=== PATIENT | male | born 1970 | race Caucasian/White ===

== ENCOUNTER 2019-06-19 14:06 | Inpatient (IN) | payer MEDICAID ==
[~2019-06-19] VITALS: Ht 180.3 cm; Wt 93.4 kg
[~2019-06-19 14:06] MED LIST: BACTRIM DS 8001 TA1 PO; CIPRO500 MG PO; KEFLEX500 MG PO; NKHM; PEN-VEE K500 MG PO; PERCOCET 325 MG1 TA1 PO; ROBAXIN500 MG PO; ULTRAM50 MG PO; VICODIN 5/500 505 MG PO
[2019-06-19 14:07] VITALS: BP 162/91
--- NOTE | 2019-06-19 15:24 | NUR ---
REPORT RECEIVED FROM DEAN CABALLERO, ASSUMED CARE OF PT, PT RESTING QUIETLY IN BED WITH NO COMPLAINTS, CALL BEARDEN IN REACH
[2019-06-19 15:25] LABS: BASO # 0.1 10*3/uL (0.0-0.1); BASO % 0.4 % (0.0-1.0); EOS # 0.2 10*3/uL (0.0-0.4); EOS % 1.9 % (1.0-4.0); HEMATOCRIT 44.1 % (42.0-52.0); HEMOGLOBIN 14.7 g/dl (14.0-18.0); LYMPH # 2.2 10*3/uL (1.3-4.4); LYMPH % 18.4 % (27.0-41.0); MEAN CELL VOLUME 85.3 fl (80.0-94.0); MEAN CORPUSCULAR HGB 28.4 pg (27.0-31.0); MEAN CORPUSCULAR HGB CONC 33.3 g/dl (33.0-37.0); MEAN PLATELET VOLUME 10.4 fl (9.6-12.3); MONO # 0.8 10*3/uL (0.1-1.0); MONO % 6.5 % (3.0-9.0); NEUT # 8.7 10*3/uL (2.3-7.9); PLATELET COUNT AUTOMATED 323 10*3/uL (130-400); RED BLOOD COUNT 5.17 10*6/uL (4.50-5.90); RED CELL DISTRI WIDTH 12.9 % (0-14.5); WHITE BLOOD COUNT 12.1 10*3/uL (4.8-10.8)
[2019-06-19 15:35] LABS: ACT PARTIAL THROMBO TIME 26.4 SECONDS (20.0-32.1); INTERNATIONAL NORM RATIO 0.9 (2.0-3.5)
[2019-06-19 15:45] LABS: ALBUMIN 3.4 gm/dl (3.1-4.5); ALKALINE PHOSPHATASE 92 U/L (45-117); BUN 12 mg/dl (7-24); CHLORIDE 104 mmol/L (98-107); LIPASE 125 U/L (73-393); POTASSIUM 3.5 mmol/L (3.5-5.1); SGOT/AST 5 IU/L (3-35); SGPT/ALT 11 U/L (12-78); SODIUM 135 mmol/L (136-145); TOTAL PROTEIN 7.5 gm/dL (6.4-8.2)
[2019-06-19 17:01] VITALS: BP 142/80
[2019-06-19 17:25] VITALS: BP 164/74; BP 167/74
--- NOTE | 2019-06-19 17:25 | NUR ---
A 48, admitted to , under the services of GUMARO Dia DO with a diagnosis of INFECTED OPEN WOUND OF FOOT. Chief complaint is WOUND CHECK. Patient arrived via ambulatory from ER. Monitor applied. Initial assessment completed. Vital signs taken and recorded. GUMARO DIA DO notified of admission to the unit. Orders received. See assessment for past medical history, medications and allergies. Patient and/or family oriented to unit. [facility] visitation policy reviewed. Clothing/patient valuable form completed. JULIÁN KELSEY
[2019-06-19 17:27] VITALS: BP 164/74
--- NOTE | 2019-06-19 17:43 | NUR ---
Podiatry was notified of consult
[2019-06-19] MEDS ORDERED: PRINIVIL10 MG PO (18:35)
[2019-06-19] MEDS ORDERED: GLUCOPHAGE1000 MG PO (18:39)
[2019-06-19] MEDS ORDERED: CELEXA10 MG PO (18:40)
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
[2019-06-19 20:00] VITALS: BP 140/66; BP 148/76
[2019-06-20] VITALS: BP 115/60
--- NOTE | 2019-06-20 01:09 | NUR ---
Patient resting quietly with no s/s of discomfort. Respirations easy and regular. Vital signs stable. No overt distress. Call light within reach. HISSOM,MANOJ
--- NOTE | 2019-06-20 01:24 | NUR ---
24 HR chart check completed.
--- NOTE | 2019-06-20 05:30 | NUR ---
WOUND CARE NURSE ROUNDED. APPLIED NEW DRESSING TO FOOT. TOLERATED WELL.
--- NOTE | 2019-06-20 05:47 | NUR ---
CODY RUSSELL [id number] Please refer to the physician's history and physical for past medical history, comorbid conditions, and allergies. Diagnosis: WOUND OF FOOT INFECTED OPEN WOUND John Score: 20,LOW OR NO RISK WOUND DESCRIPTIONS: Wound Number: 1 Location of the wound: medial aspect of right great toe Type of wound: unstageable Thickness: Full Size: 3.2cm x 3.5cm x 1.4cm Tunneling: none Undermining: none Sinus Tract: none Presence of Exudate: Purulent Amount: Light Color: Black, brown, yellow, red Odor: Foul Periwound Skin Appearance: Erythema Wound edges: approximated Pain (associated with wound): none at time of assessment pt stated ever since he has been diagnosis with diabetes 28 years ago he has not had feeling How does patient state this happened? pt stated this started about 1-2 years and was following with podiatry in [place] and he stated that they remove the tissue and it healed. Patient stated that he brought new boots in January and has since reopened and he stated he has been taking care of it himself. He stated he will follow up with podiatry upon discharge. Surface the patient is resting on: Isoflex SKIN PREVENTION RECOMMENDATION: 1. Pressure redistribution support surface as appropriate 2. Elevate heels 3. Remove boots/TEDS every shift and reapply 4. Head of bed 30 degrees as tolerated 5. Assess nutrition and hydration 6. Manage moisture 7. Avoid the use of containment devices while in bed 8. Use absorptive products on surfaces limit layers of linens on bed 9. Turn and reposition every 1-2 hours in bed and every 1 hour in chair as tolerated 10. Weight shifts every 15 minutes while up in chair 11. Offloading with pillows or device to keep heels elevated off bed 12. Monitor skin at least every shift 13. Inspect under medical devices twice a day WOUND TREATMENT RECOMMENDATIONS: Consult ID. Venous and arterial studies to BLE's due to non-healing wound. Podiatry is already on consult may need debridement if studies allow. Heel raiser pro boots to bilateral heels while in bed. Full thickness guidelines: Apply betadine soaked gauzed and cover with dsd daily and prn for soiling.
--- NOTE | 2019-06-20 06:51 | NUR ---
PATIENT RESTING IN BED. VOICES NO NEEDS/CONCERNS AT THIS TIME. RESPS EASY/NON LABORERED. CALL LIGHT WITHIN REACH
[2019-06-20 07:07] LABS: BASO # 0.1 10*3/uL (0.0-0.1); BASO % 0.8 % (0.0-1.0); EOS # 0.3 10*3/uL (0.0-0.4); EOS % 3.3 % (1.0-4.0); HEMATOCRIT 41.6 % (42.0-52.0); HEMOGLOBIN 13.9 g/dl (14.0-18.0); LYMPH # 2.3 10*3/uL (1.3-4.4); LYMPH % 25.3 % (27.0-41.0); MEAN CELL VOLUME 86.1 fl (80.0-94.0); MEAN CORPUSCULAR HGB 28.8 pg (27.0-31.0); MEAN CORPUSCULAR HGB CONC 33.4 g/dl (33.0-37.0); MEAN PLATELET VOLUME 10.6 fl (9.6-12.3); MONO # 0.5 10*3/uL (0.1-1.0); NEUT # 5.8 10*3/uL (2.3-7.9); NEUT % 64.4 % (47.0-73.0); PLATELET COUNT AUTOMATED 286 10*3/uL (130-400); RED BLOOD COUNT 4.83 10*6/uL (4.50-5.90); RED CELL DISTRI WIDTH 12.9 % (0-14.5); WHITE BLOOD COUNT 9.1 10*3/uL (4.8-10.8)
[2019-06-20 07:37] LABS: ALKALINE PHOSPHATASE 79 U/L (45-117); BUN 11 mg/dl (7-24); CHLORIDE 107 mmol/L (98-107); CHOLESTEROL 151 mg/dL (<200); CREATININE 0.93 mg/dL (0.70-1.30); FREE T4 1.27 ng/dl (0.76-1.46); HDL CHOLESTEROL 37 mg/dl (40-60); LDL CHOLESTEROL 84 mg/dL (9-159); PHOSPHOROUS 2.8 mg/dL (2.5-4.9); POTASSIUM 3.6 mmol/L (3.5-5.1); SGOT/AST 7 IU/L (3-35); SGPT/ALT 10 U/L (12-78); SODIUM 140 mmol/L (136-145); TOTAL PROTEIN 6.6 gm/dL (6.4-8.2); TRIGLYCERIDES 148 mg/dl (<150); VLDL CHOLESTEROL 30 mg/dL (6-40)
[2019-06-20 07:41] LABS: THYROID STIM HORMONE (HS) 0.672 uIU/ml (0.358-4.75)
--- NOTE | 2019-06-20 07:45 | NUR ---
Peggy CHEN notified of wound care recommendations.
[2019-06-20 08:00] VITALS: BP 134/64
--- NOTE | 2019-06-20 10:00 | NUR ---
RESTING IN CHAIR. TOLERATED ROUTINE MEDS WITH NO PROBLEM .CALL LIGHT IN REACH.
--- NOTE | 2019-06-20 10:00 | NUR ---
PT C/O RIGHT TOE PAIN, RATES PAIN 8 ON PAIN SCALE 0-10. MEDICATED WITH TYLENOL TWO TAB PO PER PRN ORDER, SEE EMAR. CALL LIGHT IN REACH. SEE SHIFT ASSESSMETN.
[2019-06-20 10:15] LABS: VITAMIN D, 25-HYDROXY 20.3 ng/mL (30-100)
--- NOTE | 2019-06-20 11:00 | NUR ---
STATES MEDICATION HELPED. CALL LIGHT IN REACH.
[2019-06-20 12:00] VITALS: BP 132/62
--- NOTE | 2019-06-20 12:00 | NUR ---
BSG-236, SEE EMAR. NO C/O AT THIS TIME. CALL LIGHT IN REACH .NO C/O A TTHIS TIME.
--- NOTE | 2019-06-20 13:30 | NUR ---
PT WAS SMOKING IN BATHROOM. ONOFRE BRITT WAS IN TO TALK WITH PT.
--- NOTE | 2019-06-20 14:31 | NUR ---
Valve Steamer in to talk to patient. Patient states lives at HOME with SISTER. There are NO steps in the home. Physician: [facility] Home health services: NO Patient's level of ADLs: INDEPENDENT Patient has working utilities: YES DME: NONE Follow-up physician's appointment after d/c: WANTS SET UP WITH [facility] ON DISCHARGE Does patient want to access PORTAL?: NO Discharge plan PT LIVES AT HOME WITH HIS SISTER AND IS INDEPENDENT IN HIS CARE. DENIES HE WILL HAVE NEEDS AT HOME. WILL CONTINUE TO FOLLOW. WILL HAVE A RIDE HOME PER PT.. SUSIE MADISON
--- NOTE | 2019-06-20 15:15 | NUR ---
CALLED DR. RUSSELL OFFICE FOR CONSULT THEY WILL NOTIFY HER.
--- NOTE | 2019-06-20 15:20 | NUR ---
CALLED DR. RUSSELL OFFICE THEY WILL NOTIFY HER OF CONSULT.
--- NOTE | 2019-06-20 18:00 | NUR ---
DRESSING APPLIED TO RIGHT GREAT TOE D/I. NO DRAINAGE NOTED. TOLERATED ROUTINE IV MEDICATION. CALL LIGHT IN REACH.
[2019-06-20 18:06] VITALS: BP 136/71
--- NOTE | 2019-06-20 18:41 | NUR ---
DR. WALTERS AWARE OF CONSULT. DR. VITALE WILL SEE PT IN AM.
[2019-06-20 20:00] VITALS: BP 146/72
[2019-06-21] VITALS (8 sets, daily range): BP systolic 106–159; BP diastolic 48–79
--- NOTE | 2019-06-21 08:50 | NUR ---
MAHAD PIKE IN TO SEE PATIENT.
--- NOTE | 2019-06-21 10:26 | NUR ---
'S OFFICE CALLED REGARDING MED LIST.
--- NOTE | 2019-06-21 10:31 | NUR ---
PATIENT TAKEN OFF THE FLOOR FOR SCHEDULED SURGERY.
--- NOTE | 2019-06-21 12:02 | NUR ---
Nutritional Support Services Note: PT is eating 100% of meals served. Was NPO for surgery this am. 1800cal diabetic diet as ordered. Infected open wound to right great toe. Pt refused supplement. Recommended continued good intake of meals. Declined a diet copy. Will follow as needed. Ht.5'11 Wt.206#. Felicity López Rdn Ld
--- NOTE | 2019-06-21 12:28 | NUR ---
PATIENT RETURNED TO ROOM FROM SCHEDULED SURGERY.
--- NOTE | 2019-06-21 12:40 | NUR ---
PT MEDICATED WITH IV MORPHINE PER PRN ORDER FOR C/O TOE PAIN TO RIGHT FOOT. PATIENT RETURNED FROM SCHEDULED PROCEDURE. WOUND VAC INTACT WITH [employer]. WILL MONITOR EFFECTIVENESS. CALL LIGHT WITHIN REACH.
--- NOTE | 2019-06-21 13:30 | NUR ---
MORPHINE RELIEVING PAIN PER PT. WILL CONTINUE TO MONITOR.
--- NOTE | 2019-06-21 15:31 | NUR ---
PT HAD SURGERY TODAY. STILL DENING NEEDS AT THIS TIME. WILL CONTINUE TO FOLLOW.
--- NOTE | 2019-06-21 20:30 | NUR ---
MEDICATED [facility] MORPHINE PER PRN ORDER FOR C/O PAIN.
[2019-06-22] VITALS: BP 157/77
[2019-06-22 08:00] VITALS: BP 132/66
--- NOTE | 2019-06-22 08:03 | NUR ---
Spoke with Dr. Patel he stated he will put the orders in for the wound vac.
--- NOTE | 2019-06-22 09:58 | NUR ---
Late entry - Spoke to Dr. Arana regarding outpatient wound vac and the patient being self pay. Dr. Ferrell would like patient to have IV antibiotics and a wound vac on discharge. Informed Dr. Arana [facility] wound vac form will need to be completed and an application can be completed for viraj care. Her verbalized an understanding. [facility] viraj care form given to CM. Patient will have to come to the hospital for his IV antibiotics. Awaiting completion of [facility] wound vac form.
--- NOTE | 2019-06-22 10:26 | NUR ---
BRISA FOR FOOT PAIN
--- NOTE | 2019-06-22 11:00 | NUR ---
BRISA EFFECTIVE, PT IN RECLINER, REMINDED TO ELEVATE FOOT
--- NOTE | 2019-06-22 11:29 | NUR ---
PSYCHIATRIC CARE FORM COMMPLETED FOR WOUND VAC AND FAXED TO REPLACED BY [facility].
[2019-06-22 12:00] VITALS: BP 142/75
[2019-06-22 13:05] LABS: ACID FAST SPEC PROCESSING Tissue Grinding (.)
--- NOTE | 2019-06-22 15:28 | NUR ---
WAITING FOR PODIATRY TO FILL OUT WOUND VAC FORM SO IT CAN BE SENT TO [facility].
[2019-06-22 16:00] VITALS: BP 138/76
[2019-06-22] MEDS ORDERED: BACTRIM 400-801 EACH PO (16:15)
--- NOTE | 2019-06-22 16:30 | NUR ---
ID IN TO SEE PT
--- NOTE | 2019-06-22 18:06 | NUR ---
CROCKETT FOR FOOT PAIN, PT REMAINS IN RECLINER, HAS BEEN OOB ALL DAY, AMBULATES TO BATHROOM WITH STEADY GAIT
[2019-06-22 20:00] VITALS: BP 156/76
--- NOTE | 2019-06-22 20:24 | NUR ---
PATIENT STATED THE NORCO WAS NOT EFFECTIVE FOR HIS PAIN, STATES HE IS HAVING SEVERE PAIN IN RT FOOT. MORPHINE GIVEN. WILL MONITOR AND REASSESS.
--- NOTE | 2019-06-22 22:00 | NUR ---
PATIENT RESTING, NO SIGNS OF DISTRESS. MORPHINE EFFECTIVE. WILL CONTINUE TO MONITOR.
[2019-06-23] VITALS: BP 125/73
--- NOTE | 2019-06-23 01:07 | NUR ---
24 HR chart check completed.
--- NOTE | 2019-06-23 07:52 | NUR ---
Notified Dr. Arana [facility] wound vac form needs ot be completed. He states he will completed when he arrives at the hospital. Awaiting completed [facility] wound vac form.
[2019-06-23 08:00] VITALS: BP 120/72
[2019-06-23 08:26] LABS: BASO # 0.1 10*3/uL (0.0-0.1); BASO % 1.1 % (0.0-1.0); EOS # 0.3 10*3/uL (0.0-0.4); EOS % 4.3 % (1.0-4.0); HEMATOCRIT 43.1 % (42.0-52.0); HEMOGLOBIN 14.4 g/dl (14.0-18.0); MEAN CELL VOLUME 86.7 fl (80.0-94.0); MEAN CORPUSCULAR HGB CONC 33.4 g/dl (33.0-37.0); MEAN PLATELET VOLUME 10.6 fl (9.6-12.3); MONO # 0.5 10*3/uL (0.1-1.0); MONO % 6.4 % (3.0-9.0); NEUT # 4.4 10*3/uL (2.3-7.9); NEUT % 60.9 % (47.0-73.0); PLATELET COUNT AUTOMATED 300 10*3/uL (130-400); RED BLOOD COUNT 4.97 10*6/uL (4.50-5.90); RED CELL DISTRI WIDTH 12.9 % (0-14.5); WHITE BLOOD COUNT 7.2 10*3/uL (4.8-10.8)
[2019-06-23 08:35] LABS: BUN 11 mg/dl (7-24); CHLORIDE 106 mmol/L (98-107); CREATININE 0.99 mg/dL (0.70-1.30); POTASSIUM 3.5 mmol/L (3.5-5.1); SODIUM 139 mmol/L (136-145)
[2019-06-23 12:00] VITALS: BP 130/70
--- NOTE | 2019-06-23 13:55 | NUR ---
RECEIVED WOUND VAC FORM BACK WITH DOCTORS SIGNITURE AND FAXED IT TO [facility] WITH [facility] FORM AGAIN AND CLINICALS.
[2019-06-23 16:00] VITALS: BP 138/70
--- NOTE | 2019-06-23 16:16 | NUR ---
[facility] CALLED BACK AND STATED A FEW LEGNTH OF TIME FOR VAC AND ORDER NEEDED MARKED IT WAS A DIABETIC WOUND. FIXED AND FAXED BACK TO THEM.
--- NOTE | 2019-06-23 16:46 | NUR ---
BRISA FOR FOOT PAIN
--- NOTE | 2019-06-23 19:17 | NUR ---
PO DOCULAX FOR C/O NO BM X 4 DAYS
[2019-06-23 20:00] VITALS: BP 148/82
--- NOTE | 2019-06-23 20:00 | NUR ---
PATIENT HAVING PAIN IN RT FOOT, RATES 10/10. MORPHINE GIVEN. WILL MONITOR AND REASSESS.
--- NOTE | 2019-06-23 21:30 | NUR ---
MORPHINE EFFECTIVE FOR PAIN.
--- NOTE | 2019-06-23 23:58 | NUR ---
24 HR chart check completed.
[2019-06-24] VITALS: BP 159/80
[2019-06-24 08:00] VITALS: BP 122/68; BP 140/83
--- NOTE | 2019-06-24 09:08 | NUR ---
PATIENT MEDICATED WITH PO NORCO AT THIS TIME FOR COMPLAINTS OF PAIN IN RLE 04/29. WILL MONITOR FOR EFFECTIVENESS.
--- NOTE | 2019-06-24 10:45 | NUR ---
PER PATIENT, PRN MED HAS BEEN EFFECTIVE.
[2019-06-24 12:00] VITALS: BP 139/68
[2019-06-24 16:00] VITALS: BP 127/65
[2019-06-24 20:00] VITALS: BP 131/66
--- NOTE | 2019-06-24 20:38 | NUR ---
AWAKE/ALERT FOR SHIFT ASSESSMENT. C/O RIGHT FOOT BURNING/PAIN RATED 8/10. MEDICATED WITH PRN MORPHINE ORDERD. PLEASANT/COOPERATIVE WITH CARE. WOUND VAC MAINTAINED. IV ABX INFUSING. CALL LIGHT IS IN REACH
[2019-06-25] VITALS: BP 123/61
[2019-06-25 08:00] VITALS: BP 126/94
--- NOTE | 2019-06-25 09:53 | NUR ---
PATIENT C/O PAIN IN RIGHT FOOT 04/29 AT THIS TIME; MEDICATED WITH NORCO PER ORDER. WILL MONITOR.
--- NOTE | 2019-06-25 11:00 | NUR ---
PER PATIENT, PAIN MEDICATION HAS BEEN EFFECTIVE.
[2019-06-25 12:00] VITALS: BP 138/63
[2019-06-25 16:00] VITALS: BP 143/80
--- NOTE | 2019-06-25 16:15 | NUR ---
PATIENT MEDICATED WITH NORCO AT THIS TIME FOR COMPLAINTS OF PAIN IN RIGHT FOOT 03/29. WILL MONITOR FOR EFFECTIVENESS.
--- NOTE | 2019-06-25 17:30 | NUR ---
PER PATIENT, PRN MEDICATION HAS BEEN EFFECTIVE. NO FURTHER COMPLAINTS AT THIS TIME.
[2019-06-25 20:00] VITALS: BP 132/63
--- NOTE | 2019-06-25 21:08 | NUR ---
PATIENT COMPLAINS OF 8/10 FOOT PAIN. MEDICATED PER ORDER. WILL CONTINUE TO [facility] FOR RELIEF. VOICES NO OTHER CONCERNS AT THIS TIME. RESTING IN BED. CALL LIGHT WITHIN REACH.
--- NOTE | 2019-06-25 22:00 | NUR ---
PAIN MEDICATION EFFECTIVE
--- NOTE | 2019-06-25 22:12 | NUR ---
PATIENT RESTING IN BED AT THIS TIME. VOICES NO CONCERNS. CALL LIGHT WITHIN REACH
[2019-06-26] VITALS: BP 111/55
--- NOTE | 2019-06-26 02:05 | NUR ---
PATIENTS IV NOT WORKING. ASKED PATIENT IF HE WOULD LIKE IT OUT NOW, AND WE WOULD START ANOTHER IN THE MORNING. PATIENT STATED HE WAS TIRED AND WANTED TO WAIT TO TAKE IT OUT/START ANOTHER UNTIL TOMORROW MORNING.
--- NOTE | 2019-06-26 02:31 | NUR ---
Patient sleeping. Respirations relaxed and easy. Siderails up . [place] on. CALL LIGHT WITHIN REACH HISSOM,MANOJ
--- NOTE | 2019-06-26 03:12 | NUR ---
24 HR chart check completed.
--- NOTE | 2019-06-26 06:24 | NUR ---
IV started right hand with #22 protective cath after 1 attempts. Site prepped with Chloroprep. Sterile dressing applied. Patient tolerated procedure well. MANOJ KAISER
--- NOTE | 2019-06-26 06:24 | NUR ---
Hep Lock discontinued. Site asymptomatic. Pressure applied. Sterile dressing applied. MANOJ KAISER
[2019-06-26 06:53] LABS: BASO # 0.1 10*3/uL (0.0-0.1); BASO % 1.2 % (0.0-1.0); EOS # 0.4 10*3/uL (0.0-0.4); HEMOGLOBIN 14.1 g/dl (14.0-18.0); LYMPH # 2.5 10*3/uL (1.3-4.4); LYMPH % 32.3 % (27.0-41.0); MEAN CELL VOLUME 87.2 fl (80.0-94.0); MEAN CORPUSCULAR HGB 28.6 pg (27.0-31.0); MEAN CORPUSCULAR HGB CONC 32.8 g/dl (33.0-37.0); MONO # 0.7 10*3/uL (0.1-1.0); MONO % 9.4 % (3.0-9.0); NEUT % 51.7 % (47.0-73.0); PLATELET COUNT AUTOMATED 288 10*3/uL (130-400); RED BLOOD COUNT 4.93 10*6/uL (4.50-5.90); RED CELL DISTRI WIDTH 12.8 % (0-14.5); WHITE BLOOD COUNT 7.8 10*3/uL (4.8-10.8)
[2019-06-26 06:58] LABS: ALKALINE PHOSPHATASE 64 U/L (45-117); BUN 12 mg/dl (7-24); CHLORIDE 105 mmol/L (98-107); CREATININE 1.17 mg/dL (0.70-1.30); POTASSIUM 3.8 mmol/L (3.5-5.1); SGOT/AST 13 IU/L (3-35); SGPT/ALT 20 U/L (12-78); SODIUM 138 mmol/L (136-145); TOTAL PROTEIN 6.6 gm/dL (6.4-8.2)
--- NOTE | 2019-06-26 07:00 | NUR ---
ARRIVED ON SHIFT, INTRODUCED TO PATIENT, BEDSIDE REPORT RECEIVED, PATIENT UP IN CHAIR, NO NEEDS VOICED AT THIS TIME.
--- NOTE | 2019-06-26 07:31 | NUR ---
Spoke with Dr. Arana regarding wound vac orders stated he will clarify when he gets here.
--- NOTE | 2019-06-26 07:56 | NUR ---
PATIENT C/O RIGHT FOOT, RATES PAIN 9/10 REPORTS IT IS A BURNING, SHOOTING PAIN FROM HEEL UP [place]MON[place], MEDICATED WITH NORCO ORDERED.
[2019-06-26 08:00] VITALS: BP 147/73
--- NOTE | 2019-06-26 08:01 | NUR ---
Shift chart check completed.
[2019-06-26 12:00] VITALS: BP 135/73
--- NOTE | 2019-06-26 12:23 | NUR ---
PATIENT C/O RIGHT FOOT 8/10 THROBBING, MEDICATED WITH NORCO ORDERED.
--- NOTE | 2019-06-26 13:38 | NUR ---
Asked Dr. Arana if he was going to put the home wound vac on and he states he would. Informed the wound vac would be here between 5:30 and 6 pm tonight. Peggy Garcia notified.
--- NOTE | 2019-06-26 13:43 | NUR ---
PER HARDY FORM [facility], WOUND VAC WILL BE HERE BETWEEN 5:[address] SAL WILL BE IN TO APPLY WOUND VAC BEFORE PT DISCHARGED. MAHAD GALLAGHER.
[2019-06-26] MEDS ORDERED: Lantus SC (13:50)
[2019-06-26] MEDS ORDERED: HYDROCODONE-AC1 EAC1 PO (13:50)
[2019-06-26] MEDS ORDERED: PRINIVIL10 MG PO (13:50)
[2019-06-26] MEDS ORDERED: GLUCOPHAGE1000 MG PO (13:50)
[2019-06-26 16:00] VITALS: BP 124/62
--- NOTE | 2019-06-26 19:00 | NUR ---
Discharge instructions reviewed with patient/family. Patient receptive and verbalizes understanding. Follow-up care arranged. Written instructions given to patient/family. WOUND CARE SUPPLIES SENT WITH PATIENT, IV REMOVED, LEFT VIA W/C. TANO GLASS
[2019-08-02 11:09] LABS: ACID FAST CULTURE Negative (.)
== END 2019-06-26 20:28 | disposition home or self-care (01) | DRG 629 ==
LOC: ED 14:06 → 5E 16:16 → EDHOLD 16:16 → 5E 16:57
PROVIDERS: Internal Medicine; Nurse Practitioner Family; Podiatrist; Registered Nurse; ADMIT Internal Medicine
PROC: 0QBQ0ZZ Excision of Right Toe Phalanx, Open Approach (ICD-10-PCS; principal; 2019-06-21)
DX: E11.621 Type 2 diabetes mellitus with foot ulcer (principal); E44.1 Mild protein-calorie malnutrition; L03.031 Cellulitis of right toe; F41.1 Generalized anxiety disorder; E11.65 Type 2 diabetes mellitus with hyperglycemia; R00.1 Bradycardia, unspecified; D50.0 Iron deficiency anemia secondary to blood loss (chronic); E55.9 Vitamin D deficiency, unspecified; L97.519 Non-pressure chronic ulcer of other part of right foot with unspecified severity; F12.90 Cannabis use, unspecified, uncomplicated; E11.42 Type 2 diabetes mellitus with diabetic polyneuropathy; I10 Essential (primary) hypertension; Z79.84 Long term (current) use of oral hypoglycemic drugs; Z82.49 Family history of ischemic heart disease and other diseases of the circulatory system; Z81.1 Family history of alcohol abuse and dependence; Z79.899 Other long term (current) drug therapy; Z87.891 Personal history of nicotine dependence; Z68.28 Body mass index [BMI] 28.0-28.9, adult

== ENCOUNTER → 2019-07-04 | Outpatient (CLI) | payer OTHER ==
[~2019-07-04] MED LIST changes: +BACTRIM 400-801 EACH PO; +CELEXA10 MG PO; +GLUCOPHAGE1000 MG PO; +HYDROCODONE-AC1 EAC1 PO; +Lantus SC; +PRINIVIL10 MG PO
== END | disposition home or self-care (01) ==
LOC: RESCLI 00:48
DX: E11.43 Type 2 diabetes mellitus with diabetic autonomic (poly)neuropathy (principal); I10 Essential (primary) hypertension; Z79.4 Long term (current) use of insulin; Z98.890 Other specified postprocedural states; Z88.8 Allergy status to other drugs, medicaments and biological substances

== ENCOUNTER → 2019-08-25 | Outpatient (CLI) | payer OTHER | END | disposition home or self-care (01) | LOC: RESCLI 01:37 | DX: Z23 Encounter for immunization (principal); E78.5 Hyperlipidemia, unspecified; E55.9 Vitamin D deficiency, unspecified; E11.43 Type 2 diabetes mellitus with diabetic autonomic (poly)neuropathy; I10 Essential (primary) hypertension; F41.1 Generalized anxiety disorder; F17.210 Nicotine dependence, cigarettes, uncomplicated; Z79.899 Other long term (current) drug therapy; Z79.84 Long term (current) use of oral hypoglycemic drugs; Z79.4 Long term (current) use of insulin ==

== ENCOUNTER → 2019-09-29 | Outpatient (CLI) | payer OTHER ==
[2019-09-29 09:25] LABS: BASO # 0.1 10*3/uL (0.0-0.1); BASO % 0.8 % (0.0-1.0); EOS # 0.3 10*3/uL (0.0-0.4); EOS % 3.1 % (1.0-4.0); HEMATOCRIT 46.8 % (42.0-52.0); HEMOGLOBIN 15.5 g/dl (14.0-18.0); LYMPH % 28.8 % (27.0-41.0); MEAN CELL VOLUME 87.2 fl (80.0-94.0); MEAN CORPUSCULAR HGB 28.9 pg (27.0-31.0); MEAN CORPUSCULAR HGB CONC 33.1 g/dl (33.0-37.0); MEAN PLATELET VOLUME 10.7 fl (9.6-12.3); MONO # 0.7 10*3/uL (0.1-1.0); MONO % 6.5 % (3.0-9.0); NEUT # 6.4 10*3/uL (2.3-7.9); NEUT % 60.4 % (47.0-73.0); PLATELET COUNT AUTOMATED 257 10*3/uL (130-400); RED BLOOD COUNT 5.37 10*6/uL (4.50-5.90); RED CELL DISTRI WIDTH 13.2 % (0-14.5); WHITE BLOOD COUNT 10.5 10*3/uL (4.8-10.8)
[2019-09-29 10:01] LABS: ALBUMIN 3.7 gm/dl (3.1-4.5); BUN 15 mg/dl (7-24); CHLORIDE 106 mmol/L (98-107); POTASSIUM 3.8 mmol/L (3.5-5.1); SODIUM 138 mmol/L (136-145)
[2019-09-29 10:06] LABS: ALKALINE PHOSPHATASE 85 U/L (45-117); CHOLESTEROL 122 mg/dL (<200); CREATININE 0.91 mg/dL (0.70-1.30); HDL CHOLESTEROL 41 mg/dl (40-60); LDL CHOLESTEROL 54 mg/dL (9-159); SGOT/AST 9 IU/L (3-35); SGPT/ALT 26 U/L (12-78); TOTAL PROTEIN 7.5 gm/dL (6.4-8.2); TRIGLYCERIDES 137 mg/dl (<150); VLDL CHOLESTEROL 27 mg/dL (6-40)
[2019-09-30 10:06] LABS: CREATININE,URINE 79.6 mg/dL (Not Estab.)
== END | disposition home or self-care (01) ==
LOC: RESCLI 01:35
PROVIDERS: Internal Medicine
DX: I10 Essential (primary) hypertension (principal); E55.9 Vitamin D deficiency, unspecified; E78.5 Hyperlipidemia, unspecified; E11.43 Type 2 diabetes mellitus with diabetic autonomic (poly)neuropathy; Z79.4 Long term (current) use of insulin; Z79.899 Other long term (current) drug therapy

== ENCOUNTER 2020-06-12 14:52 | Observation (INO) | payer OTHER ==
[~2020-06-12] VITALS: Ht 180.3 cm; Wt 103.4 kg
[2020-06-12 15:25] VITALS: BP 145/98
[2020-06-12 16:00] VITALS: BP 138/80
[2020-06-12 17:25] LABS: BASO # 0.1 10*3/uL (0.0-0.1); BASO % 0.5 % (0.0-1.0); EOS # 0.2 10*3/uL (0.0-0.4); EOS % 1.6 % (1.0-4.0); HEMATOCRIT 44.8 % (42.0-52.0); LYMPH # 3.3 10*3/uL (1.3-4.4); LYMPH % 35.1 % (27.0-41.0); MEAN CELL VOLUME 83.3 fl (80.0-94.0); MEAN CORPUSCULAR HGB CONC 32.4 g/dl (33.0-37.0); MEAN PLATELET VOLUME 10.6 fl (9.6-12.3); MONO # 0.7 10*3/uL (0.1-1.0); MONO % 6.9 % (3.0-9.0); NEUT # 5.3 10*3/uL (2.3-7.9); NEUT % 55.6 % (47.0-73.0); PLATELET COUNT AUTOMATED 254 10*3/uL (130-400); RED BLOOD COUNT 5.38 10*6/uL (4.50-5.90); RED CELL DISTRI WIDTH 13.9 % (0-14.5); WHITE BLOOD COUNT 9.5 10*3/uL (4.8-10.8)
[2020-06-12 17:25] LABS: BILIRUBIN NEGATIVE; BLOOD 1+ (NEGATIVE); CLARITY CLEAR (CLEAR); COLOR YELLOW (YELLOW); GLUCOSE NEGATIVE; KETONE NEGATIVE; LEUKO ESTERASE NEGATIVE (NEGATIVE); NITRITE NEGATIVE (NEGATIVE); SPECIFIC GRAVITY < 1.005 (1.001-1.030)
[2020-06-12 17:28] LABS: RBC 0-2 rbc/hpf (0-2)
[2020-06-12 17:29] LABS: BACTERIA TRACE; EPITHELIAL CELLS 0-2
[2020-06-12 17:37] LABS: ACT PARTIAL THROMBO TIME 26.7 SECONDS (20.0-32.1); INTERNATIONAL NORM RATIO 1.1 (2.0-3.5)
[2020-06-12 17:42] LABS: ALBUMIN 3.4 gm/dl (3.1-4.5); ALKALINE PHOSPHATASE 79 U/L (45-117); BUN 14 mg/dl (7-24); CHLORIDE 108 mmol/L (98-107); CREATININE 0.94 mg/dL (0.70-1.30); LIPASE 329 U/L (73-393); POTASSIUM 3.3 mmol/L (3.5-5.1); SGOT/AST 15 IU/L (3-35); SGPT/ALT 26 U/L (12-78); SODIUM 139 mmol/L (136-145); TOTAL PROTEIN 7.1 gm/dL (6.4-8.2)
[2020-06-12 17:43] LABS: TROPONIN I < 0.015 ng/ml (<0.045)
[2020-06-12] MEDS ORDERED: LIPITOR10 MG PO (17:57)
[2020-06-12 18:02] VITALS: BP 145/91
--- NOTE | 2020-06-12 20:01 | NUR ---
PT PROVIDED A BOX LUNCH,PT WATCHING T.V. WHILE AWAITING ADMISSION,CALL LIGHT WITHIN REACH.
--- NOTE | 2020-06-12 20:17 | NUR ---
HOSPITALIST AT BEDSIDE. DENIES NEEDS AT THIS TIME.
[2020-06-12 20:50] VITALS: BP 138/80
--- NOTE | 2020-06-12 20:50 | NUR ---
A 49, admitted to 4E, under the services of RAMIRO Raines DO with a diagnosis of NEW ONSET AFIB. Chief complaint is IRREGULAR HR. Patient arrived via stretcher from ER. Monitor applied. Initial assessment completed. Vital signs taken and recorded. RAMIRO RAINES DO notified of admission to the unit. Orders received. See assessment for past medical history, medications and allergies. Patient and/or family oriented to unit. [facility] 4TH FLOOR visitation policy reviewed. Clothing/patient valuable form completed. LORI TARIQ
[2020-06-12] MEDS ORDERED: LISINOPRIL20 MG PO (20:57)
--- NOTE | 2020-06-12 21:31 | NUR ---
NOTIFIED DR. RAMOS PATIENTS MED REC IS UP TO DATE
--- NOTE | 2020-06-12 22:16 | NUR ---
PATIENT REQUESTING NICOTINE PATCH. NOTIFIED DR. RAMOS. STATED SHE WOULD ORDER IT.
[2020-06-12] MEDS ORDERED: LANTUS SOL100 UNIT/1 SC (22:31)
--- NOTE | 2020-06-12 22:45 | NUR ---
NOTIFIED DR. NAVAS ANSWERING SERVICE OF NEW CONSULT.
--- NOTE | 2020-06-12 22:54 | NUR ---
NICOTINE PATCH PLACED ON LEFT SHOULDER.
[2020-06-13] VITALS: BP 142/91
--- NOTE | 2020-06-13 02:04 | NUR ---
PATIENT SLEEPING, NO SIGNS OF DISTRESS. RESPIRATIONS EASY, NON LABORED. BED IN LOWEST POSITION,CALL LIGHT WITHIN REACH. WILL CONTINUE TO MONITOR.
[2020-06-13 06:51] LABS: BASO % 0.5 % (0.0-1.0); EOS # 0.2 10*3/uL (0.0-0.4); EOS % 2.4 % (1.0-4.0); HEMATOCRIT 43.8 % (42.0-52.0); LYMPH # 2.6 10*3/uL (1.3-4.4); LYMPH % 30.1 % (27.0-41.0); MEAN CELL VOLUME 83.4 fl (80.0-94.0); MEAN CORPUSCULAR HGB 26.7 pg (27.0-31.0); MONO # 0.7 10*3/uL (0.1-1.0); MONO % 7.8 % (3.0-9.0); NEUT # 5.2 10*3/uL (2.3-7.9); NEUT % 59.1 % (47.0-73.0); PLATELET COUNT AUTOMATED 242 10*3/uL (130-400); RED BLOOD COUNT 5.25 10*6/uL (4.50-5.90); RED CELL DISTRI WIDTH 14.1 % (0-14.5); WHITE BLOOD COUNT 8.8 10*3/uL (4.8-10.8)
[2020-06-13 07:20] LABS: ALKALINE PHOSPHATASE 68 U/L (45-117); BUN 14 mg/dl (7-24); CHLORIDE 110 mmol/L (98-107); CHOLESTEROL 83 mg/dL (<200); CREATININE 0.86 mg/dL (0.70-1.30); HDL CHOLESTEROL 33 mg/dl (40-60); LDL CHOLESTEROL 32 mg/dL (9-159); POTASSIUM 3.5 mmol/L (3.5-5.1); SGOT/AST 14 IU/L (3-35); SGPT/ALT 24 U/L (12-78); SODIUM 141 mmol/L (136-145); TOTAL PROTEIN 6.2 gm/dL (6.4-8.2); TRIGLYCERIDES 88 mg/dl (<150); VLDL CHOLESTEROL 18 mg/dL (6-40)
[2020-06-13 07:26] LABS: THYROID STIM HORMONE (HS) 0.541 uIU/ml (0.358-4.75)
[2020-06-13 08:00] VITALS: BP 149/92
--- NOTE | 2020-06-13 08:42 | NUR ---
PT SITTING UP AT SIDE OF BED. TOLERATED ROUTINE MED WITH NO PROBLEM. NO C/O AT THIS TIME. CALL LIGHT IN REACH. SEE SHIFT ASSESSMENT.
--- NOTE | 2020-06-13 08:54 | NUR ---
CALLED DR. CAMILO MADE AWARE OF PT HAD 5 BEAT RUN VTACH ON MONITOR. AND OCCASIONAL PVC'S. NO NEW ORDER TAKEN.
--- NOTE | 2020-06-13 11:00 | NUR ---
Patent Attorney in to talk to patient. Patient states lives at HOME with SISTER. There are NO steps in the home. Physician: [facility] [place] health services: NONE Patient's level of ADLs: INDEPENDENT Patient has working utilities: YES DME: NONE Follow-up physician's appointment after d/c: WILL BE MADE BY HOSPITALIST NURSE DIRECTOR ON DISCHARGE Does patient want to access PORTAL?: NO Discharge plan PT LIVES AT HOME WITH HIS SISTER AND IS INDEPENDENT IN HIS CARE.. PT DECLINES HE WILL HAVE ANY NEEDS ON DISCHARGE. STATES HIS PLAN IS TO RETURN HOME ON DISCHARGE. WILL CONTINUE TO FOLLOW. STATES HE WILL HAVE A RIDE HOME. SUSIE MADISON
--- NOTE | 2020-06-13 11:40 | NUR ---
PT SITTING UP IN BED. BSG-193, SEE EMAR. NO C/O AT THIS TIME. CALL LIGHT IN REACH.
[2020-06-13 12:00] VITALS: BP 155/99
[2020-06-13 16:00] VITALS: BP 150/97
--- NOTE | 2020-06-13 16:10 | NUR ---
PT RESTING IN BED BSG-229, SEE EMAR. NO C/O AT THIS TIME. CALL LIGHT IN REACH. SEE SHIFT ASSESSMENT.
[2020-06-13 20:00] VITALS: BP 138/93
--- NOTE | 2020-06-13 20:00 | NUR ---
PATIENT RESTING IN BED. VOICES NO COMPLAINTS. REPSIRATIONS EASY, NON LABORED. VSS. REMINDER PATIENT HE IS TO BE NPO PAST MIDNIGHT. BED IN LOWEST POSITION,CALL LIGHT WITHIN REACH. WILL CONTINUE TO MONITOR.
[2020-06-14] VITALS: BP 146/94
--- NOTE | 2020-06-14 00:57 | NUR ---
PATIENT REQUESTING GABAPENTIN FOR C/O BLE PAIN. DESCRIBES IT SHOOTING PAINS UP AND DOWN HIS LEGS.TYLENOL NOT EFFECTIVE. NOTIFIED DR. RAMOS. ORDERS PLACED FOR NORCO INSTEAD. WILL CONTINUE TO MONITOR.
[2020-06-14 07:02] LABS: BASO # 0.1 10*3/uL (0.0-0.1); BASO % 0.6 % (0.0-1.0); EOS # 0.2 10*3/uL (0.0-0.4); EOS % 2.3 % (1.0-4.0); HEMATOCRIT 42.8 % (42.0-52.0); LYMPH # 2.1 10*3/uL (1.3-4.4); LYMPH % 24.6 % (27.0-41.0); MEAN CELL VOLUME 82.6 fl (80.0-94.0); MEAN CORPUSCULAR HGB 26.4 pg (27.0-31.0); MEAN PLATELET VOLUME 11.2 fl (9.6-12.3); MONO # 0.8 10*3/uL (0.1-1.0); MONO % 9.3 % (3.0-9.0); NEUT # 5.5 10*3/uL (2.3-7.9); PLATELET COUNT AUTOMATED 248 10*3/uL (130-400); RED BLOOD COUNT 5.18 10*6/uL (4.50-5.90); RED CELL DISTRI WIDTH 13.8 % (0-14.5); WHITE BLOOD COUNT 8.7 10*3/uL (4.8-10.8)
--- NOTE | 2020-06-14 07:30 | NUR ---
PT RESTING IN BED. VOICES NO CONCERNS AT THIS TIME. RESPS EASY AND NON LABORED. NO S/S OF DISTRESS NTOED. VSS. WHITE BOARD UPDATED. POC DISCUSSED W PT. A/O X3. DENIES CHEST PAIN/PRESSURE/SOB/BORGES/NUMBNESS/DIZZINESS. TRACE BILAT EDEMA NOTED. AFIB IN THE 90-LOW 100'S. MORNING MEDICATIONS NOT GIVEN AT THIS TIME DUE TO NPO STATUS FOR STRESS TEST. WILL CONTINUE TO MONITOR. CALL LIGHT WITHIN REACH.
[2020-06-14 07:45] LABS: BUN 10 mg/dl (7-24); CHLORIDE 109 mmol/L (98-107); CREATININE 0.86 mg/dL (0.70-1.30); POTASSIUM 3.4 mmol/L (3.5-5.1); SODIUM 140 mmol/L (136-145)
--- NOTE | 2020-06-14 07:56 | NUR ---
PTS HEART RATE 130'S WHILE AMBULATING IN ROOM. RESPS EASY AND NON LABORED. NO S/S OF DISTRESS NOTED. VSS. NO CP/P/SOB
--- NOTE | 2020-06-14 10:30 | NUR ---
Discharge instructions reviewed with patient/family. Patient receptive and verbalizes understanding. Follow-up care arranged. Written instructions given to patient/family. MANOJ KAISER The Discharge Plan/Instructions have been completed. Hep Lock discontinued. Site asymptomatic. Pressure applied. Sterile dressing applied. MANOJ KAISER
--- NOTE | 2020-06-14 10:30 | NUR ---
PT TAKEN OFF FLOOR FOR STRESS TEST
--- NOTE | 2020-06-14 11:17 | NUR ---
Mr. Kaur was received into cardiology for Lexiscan nuclear GXT in stable condition. The procedure was explained and consent was signed. Resting BP 154/90 HR 110. AFIB RVR noted with ocasioanl PVC. Dr. Guallpa present for the test. Patient completed 10 second injection of 0.4mg Lexiscan followed by flush and at 40 second nuclear injection followed by flush. Test terminated at 1:00 due to end of protocol. Patient had complaints of odd chest discomfort. No EKG change noted. Recovery HR 142 BPO 148/84 chest discomfort gone. Mr. Kaur left the GXT room in stable condition. He had a small snack of 8oz coke and crackers. He will return to nuc med shortly to finish stress images. Then will return to nursing floor.
--- NOTE | 2020-06-14 11:42 | NUR ---
PT CONTINUES TO DENY NEEDS ON DISCHARGE. WILL CONTINUE TO FOLLOW.
[2020-06-14 12:00] VITALS: BP 147/95
--- NOTE | 2020-06-14 12:29 | NUR ---
PT BACK FROM STRESS TEST
[2020-06-14] MEDS ORDERED: METOPROLOL SUC100 M1 PO (15:47)
[2020-06-14] MEDS ORDERED: XARE20MG PO (15:47)
[2020-06-14 16:00] VITALS: BP 130/82
== END 2020-06-14 16:30 | disposition home or self-care (01) ==
LOC: ED 14:52 → 4E 19:02 → EDHOLD 19:02 → 4E 19:46
PROVIDERS: Internal Medicine; Physician Assistant; ADMIT Internal Medicine; ATTEND Internal Medicine
DX: I48.91 Unspecified atrial fibrillation (principal); E87.6 Hypokalemia; R00.0 Tachycardia, unspecified; E87.8 Other disorders of electrolyte and fluid balance, not elsewhere classified; E11.65 Type 2 diabetes mellitus with hyperglycemia; E78.5 Hyperlipidemia, unspecified; R31.9 Hematuria, unspecified; I10 Essential (primary) hypertension; D64.9 Anemia, unspecified; R79.89 Other specified abnormal findings of blood chemistry; F17.210 Nicotine dependence, cigarettes, uncomplicated

== ENCOUNTER → 2020-07-12 | Outpatient (CLI) | payer OTHER ==
[~2020-07-12] MED LIST changes: +LANTUS SOL100 UNIT/1 SC; +LIPITOR10 MG PO; +LISINOPRIL20 MG PO; +METOPROLOL SUC100 M1 PO; +XARE20MG PO
== END | disposition home or self-care (01) ==
LOC: COVID19 00:16
PROVIDERS: ATTEND Internal Medicine Cardiovascular Disease
DX: Z20.828 Contact with and (suspected) exposure to other viral communicable diseases (principal); I48.91 Unspecified atrial fibrillation

== ENCOUNTER → 2020-07-15 | Outpatient (CLI) | payer OTHER | END | disposition home or self-care (01) | LOC: RESCLI 13:42 | PROVIDERS: ATTEND Internal Medicine Nephrology | DX: Z23 Encounter for immunization (principal); E78.5 Hyperlipidemia, unspecified; I48.91 Unspecified atrial fibrillation; G62.9 Polyneuropathy, unspecified; Z79.899 Other long term (current) drug therapy ==

== ENCOUNTER → 2020-07-17 | Day surgery (SDC) | payer OTHER ==
[~2020-07-17] VITALS: Ht 180.3 cm; Wt 101.6 kg
[2020-07-17 10:45] VITALS: BP 128/89
[2020-07-17 12:18] VITALS: BP 113/70
[2020-07-17 12:35] VITALS: BP 104/76
[2020-07-17 12:49] VITALS: BP 112/70
== END | disposition home or self-care (01) ==
LOC: SDC 07-15 11:00
PROVIDERS: ATTEND Internal Medicine Cardiovascular Disease
DX: I48.19 Other persistent atrial fibrillation (principal); E78.5 Hyperlipidemia, unspecified; I10 Essential (primary) hypertension; E11.40 Type 2 diabetes mellitus with diabetic neuropathy, unspecified; Z79.4 Long term (current) use of insulin; F17.210 Nicotine dependence, cigarettes, uncomplicated; Z79.01 Long term (current) use of anticoagulants; Z79.899 Other long term (current) drug therapy

== ENCOUNTER → 2020-09-05 | Outpatient (CLI) | payer OTHER | END | disposition home or self-care (01) | LOC: COVID19 10:16 | PROVIDERS: ATTEND Internal Medicine | DX: Z20.828 Contact with and (suspected) exposure to other viral communicable diseases (principal) ==

== ENCOUNTER → 2020-09-26 | Outpatient (CLI) | payer OTHER ==
[2020-09-26 11:51] LABS: BUN 16 mg/dl (7-24); CHLORIDE 103 mmol/L (98-107); CREATININE 0.95 mg/dL (0.70-1.30); POTASSIUM 3.7 mmol/L (3.5-5.1); SODIUM 138 mmol/L (136-145)
== END | disposition home or self-care (01) ==
LOC: LAB 11:01
PROVIDERS: Student in an Organized Health Care Education/Training Program; ATTEND Internal Medicine Nephrology
DX: Z79.899 Other long term (current) drug therapy (principal)

== ENCOUNTER → 2021-02-03 | Outpatient (CLI) | payer OTHER | END | disposition home or self-care (01) | LOC: RESCLI 01:21 | PROVIDERS: ATTEND Internal Medicine Nephrology | DX: E11.43 Type 2 diabetes mellitus with diabetic autonomic (poly)neuropathy (principal); I10 Essential (primary) hypertension; E78.5 Hyperlipidemia, unspecified; E55.9 Vitamin D deficiency, unspecified; G62.9 Polyneuropathy, unspecified; I48.91 Unspecified atrial fibrillation; Z79.899 Other long term (current) drug therapy; Z98.890 Other specified postprocedural states ==

== ENCOUNTER 2021-03-06 09:12 | Emergency (ER) | payer OTHER ==
[~2021-03-06] VITALS: Wt 106.6 kg
[2021-03-06] MEDS ORDERED: JARDIANCE10 MG PO (09:40)
[2021-03-06] MEDS ORDERED: VITAMIN D350 MC2 PO (09:41)
[2021-03-06] MEDS ORDERED: HYDROCODONE-AC1 EAC1 PO (12:56)
== END 2021-03-06 12:59 | disposition home or self-care (01) ==
LOC: ED 09:12
DX: S22.31XA Fracture of one rib, right side, initial encounter for closed fracture (principal); Z79.84 Long term (current) use of oral hypoglycemic drugs; Z79.899 Other long term (current) drug therapy; Z98.890 Other specified postprocedural states; W07.XXXA Fall from chair, initial encounter; Y93.89 Activity, other specified; Y92.89 Other specified places as the place of occurrence of the external cause; Y99.8 Other external cause status

== ENCOUNTER → 2021-03-10 | Outpatient (CLI) | payer OTHER ==
[~2021-03-10] MED LIST changes: +JARDIANCE10 MG PO; +VITAMIN D350 MC2 PO
== END | disposition home or self-care (01) ==
LOC: RESCLI 06:47
PROVIDERS: ATTEND Internal Medicine Nephrology
DX: E11.43 Type 2 diabetes mellitus with diabetic autonomic (poly)neuropathy (principal); S22.39XD Fracture of one rib, unspecified side, subsequent encounter for fracture with routine healing; I10 Essential (primary) hypertension; E78.5 Hyperlipidemia, unspecified; E55.9 Vitamin D deficiency, unspecified; G62.9 Polyneuropathy, unspecified; I48.91 Unspecified atrial fibrillation; F17.200 Nicotine dependence, unspecified, uncomplicated; Z79.899 Other long term (current) drug therapy; Z79.82 Long term (current) use of aspirin; Z98.890 Other specified postprocedural states; X58.XXXD Exposure to other specified factors, subsequent encounter

== ENCOUNTER → 2021-03-10 | Outpatient (CLI) | payer OTHER ==
[2021-03-11 11:07] LABS: CREATININE,URINE 105.3 mg/dL (Not Estab.)
== END | disposition home or self-care (01) ==
LOC: LAB 13:34
PROVIDERS: ATTEND Internal Medicine
DX: E11.43 Type 2 diabetes mellitus with diabetic autonomic (poly)neuropathy (principal)

== ENCOUNTER → 2021-05-14 | Outpatient (CLI) | payer OTHER ==
[2021-05-14 09:37] LABS: BASO # 0.1 10*3/uL (0.0-0.1); BASO % 0.6 % (0.0-1.0); EOS # 0.2 10*3/uL (0.0-0.4); EOS % 2.2 % (1.0-4.0); HEMATOCRIT 45.7 % (42.0-52.0); LYMPH # 2.3 10*3/uL (1.3-4.4); MEAN CELL VOLUME 84.6 fl (80.0-94.0); MEAN CORPUSCULAR HGB 27.4 pg (27.0-31.0); MEAN CORPUSCULAR HGB CONC 32.4 g/dl (33.0-37.0); MEAN PLATELET VOLUME 10.2 fl (9.6-12.3); MONO # 0.7 10*3/uL (0.1-1.0); MONO % 7.4 % (3.0-9.0); NEUT # 6.4 10*3/uL (2.3-7.9); NEUT % 65.6 % (47.0-73.0); PLATELET COUNT AUTOMATED 240 10*3/uL (130-400); RED CELL DISTRI WIDTH 14.6 % (0-14.5); WHITE BLOOD COUNT 9.7 10*3/uL (4.8-10.8)
[2021-05-14 09:55] LABS: ALBUMIN 3.5 gm/dl (3.1-4.5); ALKALINE PHOSPHATASE 89 U/L (45-117); BUN 18 mg/dl (7-24); CHLORIDE 108 mmol/L (98-107); CHOLESTEROL 77 mg/dL (<200); SGOT/AST 14 IU/L (3-35); SGPT/ALT 30 U/L (12-78); SODIUM 140 mmol/L (136-145); TOTAL PROTEIN 6.8 gm/dL (6.4-8.2); TRIGLYCERIDES 66 mg/dl (<150)
[2021-05-14 10:00] LABS: LDL CHOLESTEROL 29 mg/dL (9-159)
[2021-05-14 10:19] LABS: FREE T4 1.14 ng/dl (0.76-1.46)
== END | disposition home or self-care (01) ==
LOC: RESCLI 00:20 → LAB 00:20 → RESCLI 07:06
PROVIDERS: Internal Medicine; ATTEND Student in an Organized Health Care Education/Training Program
DX: I10 Essential (primary) hypertension (principal); E78.5 Hyperlipidemia, unspecified; E11.43 Type 2 diabetes mellitus with diabetic autonomic (poly)neuropathy

== ENCOUNTER → 2021-06-03 | Outpatient (CLI) | payer OTHER | END | disposition home or self-care (01) | LOC: COVID19 18:08 | PROVIDERS: ATTEND Internal Medicine | DX: Z11.52 Encounter for screening for COVID-19 (principal) ==

== ENCOUNTER → 2021-08-18 | Outpatient (CLI) | payer OTHER | END | disposition home or self-care (01) | LOC: COVID19 14:59 | PROVIDERS: ATTEND Internal Medicine | DX: U07.1 COVID-19 (principal) ==

== ENCOUNTER 2021-08-24 08:56 | Emergency (ER) | payer OTHER ==
[~2021-08-24] VITALS: Ht 180.3 cm; Wt 104.3 kg
[2021-08-24 09:28] LABS: HEMATOCRIT 44.9 % (42.0-52.0); MEAN CELL VOLUME 86.8 fl (80.0-94.0); MEAN CORPUSCULAR HGB 27.1 pg (27.0-31.0); MEAN CORPUSCULAR HGB CONC 31.2 g/dl (33.0-37.0); MEAN PLATELET VOLUME 11.7 fl (9.6-12.3); PLATELET COUNT AUTOMATED 247 10*3/uL (130-400); RED BLOOD COUNT 5.17 10*6/uL (4.50-5.90); RED CELL DISTRI WIDTH 14.8 % (0-14.5); WHITE BLOOD COUNT 6.9 10*3/uL (4.8-10.8)
[2021-08-24 09:41] LABS: ATYPICAL LYMPHS 3 % (0-0); TOTAL CELLS COUNTED 100 #CELLS
[2021-08-24 09:42] LABS: ALBUMIN 2.4 gm/dl (3.1-4.5); ALKALINE PHOSPHATASE 98 U/L (45-117); BUN 15 mg/dl (7-24); BURR CELLS FEW; CHLORIDE 110 mmol/L (98-107); CREATININE 1.63 mg/dL (0.70-1.30); PLATELET SUFFICIENCY NORMAL (NORMAL); SCHISTOCYTES FEW; SGOT/AST 14 IU/L (3-35); SGPT/ALT 20 U/L (12-78); SODIUM 139 mmol/L (136-145); TOTAL PROTEIN 6.3 gm/dL (6.4-8.2)
[2021-08-24 09:52] LABS: ETHYL ALCOHOL < 3.0 mg/dl (<3)
[2021-08-24 10:13] LABS: ACT PARTIAL THROMBO TIME 24.2 SECONDS (20.0-32.1); INTERNATIONAL NORM RATIO 1.1 (2.0-3.5)
== END 2021-08-24 13:00 | disposition short-term general hospital (02) ==
LOC: ED 08:56
PROVIDERS: Student in an Organized Health Care Education/Training Program
DX: S51.812A Laceration without foreign body of left forearm, initial encounter (principal); T39.1X2A Poisoning by 4-Aminophenol derivatives, intentional self-harm, initial encounter; T42.6X2A Poisoning by other antiepileptic and sedative-hypnotic drugs, intentional self-harm, initial encounter; Z79.899 Other long term (current) drug therapy; F17.200 Nicotine dependence, unspecified, uncomplicated; Y92.89 Other specified places as the place of occurrence of the external cause; X78.8XXA Intentional self-harm by other sharp object, initial encounter; Y93.89 Activity, other specified; Y99.8 Other external cause status

== ENCOUNTER → 2021-09-15 | Outpatient (CLI) | payer OTHER ==
[2021-09-15 16:56] LABS: BASO # 0.1 10*3/uL (0.0-0.1); BASO % 0.8 % (0.0-1.0); EOS # 0.3 10*3/uL (0.0-0.4); EOS % 2.4 % (1.0-4.0); HEMATOCRIT 39.3 % (42.0-52.0); LYMPH # 3.1 10*3/uL (1.3-4.4); LYMPH % 24.9 % (27.0-41.0); MEAN CELL VOLUME 87.5 fl (80.0-94.0); MEAN CORPUSCULAR HGB 26.7 pg (27.0-31.0); MEAN CORPUSCULAR HGB CONC 30.5 g/dl (33.0-37.0); MEAN PLATELET VOLUME 9.9 fl (9.6-12.3); MONO # 0.8 10*3/uL (0.1-1.0); MONO % 6.2 % (3.0-9.0); NEUT # 8.1 10*3/uL (2.3-7.9); NEUT % 65.2 % (47.0-73.0); PLATELET COUNT AUTOMATED 476 10*3/uL (130-400); RED BLOOD COUNT 4.49 10*6/uL (4.50-5.90); RED CELL DISTRI WIDTH 15.7 % (0-14.5); WHITE BLOOD COUNT 12.5 10*3/uL (4.8-10.8)
[2021-09-15 17:09] LABS: BUN 17 mg/dl (7-24); CHLORIDE 107 mmol/L (98-107); CREATININE 0.98 mg/dL (0.70-1.30); POTASSIUM 3.7 mmol/L (3.5-5.1); SODIUM 140 mmol/L (136-145)
== END | disposition home or self-care (01) ==
LOC: LAB 01:23 → RESCLI 01:23
PROVIDERS: Internal Medicine; ATTEND Internal Medicine Nephrology
DX: Z09 Encounter for follow-up examination after completed treatment for conditions other than malignant neoplasm (principal); N17.0 Acute kidney failure with tubular necrosis; Z23 Encounter for immunization; T14.91XA Suicide attempt, initial encounter; E11.9 Type 2 diabetes mellitus without complications; F17.200 Nicotine dependence, unspecified, uncomplicated; F12.90 Cannabis use, unspecified, uncomplicated; S61.512A Laceration without foreign body of left wrist, initial encounter; X78.9XXA Intentional self-harm by unspecified sharp object, initial encounter; Y93.89 Activity, other specified; Y92.89 Other specified places as the place of occurrence of the external cause; Y99.8 Other external cause status; Z79.84 Long term (current) use of oral hypoglycemic drugs; Z79.899 Other long term (current) drug therapy; Z79.82 Long term (current) use of aspirin

== ENCOUNTER → 2021-10-31 | Day surgery (SDC) | payer OTHER ==
[~2021-10-31] VITALS: Ht 180.3 cm; Wt 97.5 kg
[~2021-10-31] MED LIST changes: +FLECAINIDE ACE100 M1 PO; +NEURONTIN300 MG PO
[2021-10-31 09:55] VITALS: BP 120/66
[2021-10-31 11:21] VITALS: BP 99/59
[2021-10-31 11:36] VITALS: BP 92/55
[2021-10-31 11:51] VITALS: BP 88/54
[2021-10-31 12:06] VITALS: BP 104/60
== END | disposition home or self-care (01) ==
LOC: SDC 10-21 10:15
PROVIDERS: ATTEND Internal Medicine Cardiovascular Disease
DX: I48.19 Other persistent atrial fibrillation (principal); I10 Essential (primary) hypertension; E10.9 Type 1 diabetes mellitus without complications

== ENCOUNTER 2022-05-14 11:38 | Emergency (ER) | payer OTHER ==
[~2022-05-14] VITALS: Wt 105.7 kg
== END 2022-05-14 14:06 | disposition left against medical advice (07) ==
LOC: ED 11:38
DX: S16.1XXA Strain of muscle, fascia and tendon at neck level, initial encounter (principal); M54.50 Low back pain, unspecified; Z79.899 Other long term (current) drug therapy; Z87.891 Personal history of nicotine dependence; V43.62XA Car passenger injured in collision with other type car in traffic accident, initial encounter; Y93.89 Activity, other specified; Y92.89 Other specified places as the place of occurrence of the external cause; Y99.8 Other external cause status

== ENCOUNTER 2022-08-25 14:08 | Emergency (ER) | payer OTHER ==
[~2022-08-25] VITALS: Ht 180.3 cm; Wt 108.9 kg
== END 2022-08-25 19:33 | disposition left against medical advice (07) ==
LOC: ED 14:08
DX: Z53.21 Procedure and treatment not carried out due to patient leaving prior to being seen by health care provider (principal)

== ENCOUNTER → 2022-09-16 | Outpatient (CLI) | payer OTHER | END | disposition home or self-care (01) | LOC: LAB 07:50 | PROVIDERS: ATTEND Nurse Practitioner Family | DX: I49.3 Ventricular premature depolarization (principal); I48.91 Unspecified atrial fibrillation; M47.814 Spondylosis without myelopathy or radiculopathy, thoracic region ==

== ENCOUNTER 2022-09-23 14:53 | Emergency (ER) | payer OTHER ==
[~2022-09-23] VITALS: Wt 110.2 kg
[2022-09-23 15:55] LABS: BASO # 0.1 10*3/uL (0.0-0.1); BASO % 0.4 % (0.0-1.0); EOS # 0.1 10*3/uL (0.0-0.4); EOS % 1.1 % (1.0-4.0); LYMPH # 1.9 10*3/uL (1.3-4.4); LYMPH % 17.3 % (27.0-41.0); MEAN CELL VOLUME 81.1 fl (80.0-94.0); MEAN CORPUSCULAR HGB 24.9 pg (27.0-31.0); MEAN CORPUSCULAR HGB CONC 30.7 g/dl (33.0-37.0); MEAN PLATELET VOLUME 9.9 fl (9.6-12.3); MONO # 1.1 10*3/uL (0.1-1.0); MONO % 9.5 % (3.0-9.0); NEUT % 71.3 % (47.0-73.0); PLATELET COUNT AUTOMATED 309 10*3/uL (130-400); RED BLOOD COUNT 5.55 10*6/uL (4.50-5.90); RED CELL DISTRI WIDTH 17.2 % (0-14.5); WHITE BLOOD COUNT 11.2 10*3/uL (4.8-10.8)
[2022-09-23 16:11] LABS: TOTAL PROTEIN 6.6 gm/dL (6.0-8.0)
[2022-09-23] MEDS ORDERED: CARDIZEM CD360 MG PO (16:23)
== END 2022-09-23 17:16 | disposition home or self-care (01) ==
LOC: ED 14:53
PROVIDERS: Student in an Organized Health Care Education/Training Program
DX: I11.0 Hypertensive heart disease with heart failure (principal); I48.20 Chronic atrial fibrillation, unspecified; Z98.890 Other specified postprocedural states; Z72.0 Tobacco use; F12.90 Cannabis use, unspecified, uncomplicated; F10.90 Alcohol use, unspecified, uncomplicated; E11.9 Type 2 diabetes mellitus without complications

== ENCOUNTER → 2022-11-02 | Outpatient (CLI) | payer OTHER ==
[~2022-11-02] MED LIST changes: +CARDIZEM CD360 MG PO
== END | disposition home or self-care (01) ==
LOC: CARD 11:30
PROVIDERS: ATTEND Internal Medicine Cardiovascular Disease
DX: I51.7 Cardiomegaly (principal); I50.33 Acute on chronic diastolic (congestive) heart failure

== ENCOUNTER → 2022-12-04 | Outpatient (CLI) | payer OTHER ==
[2022-12-04 10:34] LABS: BUN 20 mg/dl (9-23); CHLORIDE 106 mmol/L (98-107); POTASSIUM 4.3 mmol/L (3.4-5.1)
== END | disposition home or self-care (01) ==
LOC: LAB 09:47
PROVIDERS: ATTEND Internal Medicine Cardiovascular Disease
DX: I10 Essential (primary) hypertension (principal)

== ENCOUNTER 2023-02-25 13:14 | Emergency (ER) | payer OTHER ==
[~2023-02-25] VITALS: Ht 180.3 cm; Wt 112.9 kg
[2023-02-25 14:08] LABS: BASO # 0.1 10*3/uL (0.0-0.1); BASO % 0.6 % (0.0-1.0); EOS # 0.1 10*3/uL (0.0-0.4); EOS % 1.2 % (1.0-4.0); HEMATOCRIT 47.7 % (42.0-52.0); LYMPH # 1.4 10*3/uL (1.3-4.4); LYMPH % 12.8 % (27.0-41.0); MEAN CELL VOLUME 82.8 fl (80.0-94.0); MEAN CORPUSCULAR HGB 26.6 pg (27.0-31.0); MEAN CORPUSCULAR HGB CONC 32.1 g/dl (33.0-37.0); MEAN PLATELET VOLUME 9.8 fl (9.6-12.3); MONO # 0.7 10*3/uL (0.1-1.0); MONO % 6.3 % (3.0-9.0); NEUT # 8.4 10*3/uL (2.3-7.9); NEUT % 78.6 % (47.0-73.0); PLATELET COUNT AUTOMATED 331 10*3/uL (130-400); RED BLOOD COUNT 5.76 10*6/uL (4.50-5.90); RED CELL DISTRI WIDTH 17.6 % (0-14.5); WHITE BLOOD COUNT 10.7 10*3/uL (4.8-10.8)
[2023-02-25 14:35] LABS: ALKALINE PHOSPHATASE 85 U/L (46-116); BUN 14 mg/dl (9-23); CHLORIDE 104 mmol/L (98-107); POTASSIUM 4.1 mmol/L (3.4-5.1); SGPT/ALT 13 U/L (10-49); TOTAL PROTEIN 6.9 gm/dL (6.0-8.0)
[2023-02-25] MEDS ORDERED: TORSEMIDE20 MG PO (15:58)
== END 2023-02-25 16:08 | disposition home or self-care (01) ==
LOC: ED 13:14
PROVIDERS: Family Medicine
DX: I50.9 Heart failure, unspecified (principal); E11.9 Type 2 diabetes mellitus without complications; Z79.4 Long term (current) use of insulin; I10 Essential (primary) hypertension; I48.91 Unspecified atrial fibrillation; Z98.890 Other specified postprocedural states; Z72.0 Tobacco use; F12.90 Cannabis use, unspecified, uncomplicated

== ENCOUNTER 2023-06-02 10:12 | Inpatient (IN) | payer OTHER ==
[~2023-06-02] VITALS: Ht 180.3 cm; Wt 109.8 kg
[~2023-06-02 10:12] MED LIST changes: +TORSEMIDE20 MG PO
[2023-06-02 10:29] VITALS: BP 90/44
[2023-06-02 10:59] LABS: BASO # 0.1 10*3/uL (0.0-0.1); BASO % 0.3 % (0.0-1.0); EOS # 0.1 10*3/uL (0.0-0.4); EOS % 0.8 % (1.0-4.0); HEMATOCRIT 44.7 % (42.0-52.0); LYMPH # 0.8 10*3/uL (1.3-4.4); LYMPH % 5.2 % (27.0-41.0); MEAN CELL VOLUME 84.7 fl (80.0-94.0); MEAN CORPUSCULAR HGB 27.3 pg (27.0-31.0); MEAN CORPUSCULAR HGB CONC 32.2 g/dl (33.0-37.0); MEAN PLATELET VOLUME 9.8 fl (9.6-12.3); MONO # 0.9 10*3/uL (0.1-1.0); MONO % 6.4 % (3.0-9.0); NEUT # 12.6 10*3/uL (2.3-7.9); NEUT % 86.9 % (47.0-73.0); PLATELET COUNT AUTOMATED 280 10*3/uL (130-400); RED BLOOD COUNT 5.28 10*6/uL (4.50-5.90); RED CELL DISTRI WIDTH 16.1 % (0-14.5); WHITE BLOOD COUNT 14.5 10*3/uL (4.8-10.8)
[2023-06-02 11:10] LABS: ACT PARTIAL THROMBO TIME 38.5 SECONDS (20.0-32.1); INTERNATIONAL NORM RATIO 1.4 (2.0-3.5)
[2023-06-02 11:21] LABS: POTASSIUM 3.8 mmol/L (3.4-5.1)
[2023-06-02 13:17] VITALS: BP 84/60
[2023-06-02 14:44] VITALS: BP 95/46
[2023-06-02 15:20] LABS: BILIRUBIN Negative (Negative); BLOOD Negative (Negative); CLARITY Clear (Clear); COLOR Yellow (Yellow); GLUCOSE 3+ (Negative); KETONE Negative (Negative); LEUKO ESTERASE Negative (Negative); NITRITE Negative (Negative); PH 5.5 (4.5-8.0); SPECIFIC GRAVITY 1.015 (1.001-1.030); UROBILINOGEN 0.2 E.U./dl (0.0-1.0)
[2023-06-02 15:43] LABS: BACTERIA TRACE; RBC 0-2 rbc/hpf (0-2); WBC 0-2 wbc/hpf (0-5)
[2023-06-02 20:02] VITALS: BP 98/63
[2023-06-03] VITALS: BP 112/63
[2023-06-03 06:49] LABS: BASO % 0.4 % (0.0-1.0); EOS # 0.3 10*3/uL (0.0-0.4); EOS % 2.6 % (1.0-4.0); HEMATOCRIT 43.8 % (42.0-52.0); LYMPH # 1.5 10*3/uL (1.3-4.4); LYMPH % 15.3 % (27.0-41.0); MEAN CELL VOLUME 86.6 fl (80.0-94.0); MEAN CORPUSCULAR HGB 27.1 pg (27.0-31.0); MEAN CORPUSCULAR HGB CONC 31.3 g/dl (33.0-37.0); MEAN PLATELET VOLUME 9.7 fl (9.6-12.3); MONO # 0.7 10*3/uL (0.1-1.0); NEUT # 7.5 10*3/uL (2.3-7.9); NEUT % 74.4 % (47.0-73.0); PLATELET COUNT AUTOMATED 277 10*3/uL (130-400); RED BLOOD COUNT 5.06 10*6/uL (4.50-5.90); RED CELL DISTRI WIDTH 16.4 % (0-14.5)
[2023-06-03 07:16] LABS: BUN 18 mg/dl (9-23); CHLORIDE 104 mmol/L (98-107); CHOLESTEROL 93 mg/dL (<200); FREE T4 1.31 ng/dl (0.89-1.76); LDL CHOLESTEROL 41 mg/dL (9-159); TRIGLYCERIDES 114 mg/dl (<150)
[2023-06-03 07:52] LABS: POTASSIUM 4.8 mmol/L (3.4-5.1)
[2023-06-03 08:00] VITALS: BP 112/63
[2023-06-03 12:00] VITALS: BP 110/59
[2023-06-03] MEDS ORDERED: ALDACTONE25 M1 PO ×2 (12:02→14:46)
[2023-06-03] MEDS ORDERED: SYMB160 INH ×2 (12:04→14:46)
[2023-06-03] MEDS ORDERED: VENT7GM INH ×2 (12:04→14:46)
[2023-06-03] MEDS ORDERED: FUROSEMIDE40 MG PO ×2 (12:09→14:46)
[2023-06-03] MEDS ORDERED: NEURONTIN300 MG PO (13:50)
[2023-06-03] MEDS ORDERED: ZESTRIL10 MG PO ×2 (13:52→14:46)
[2023-06-03] MEDS ORDERED: METOPROLOL SUC100 M1 PO ×2 (13:55→14:46)
[2023-06-03] MEDS ORDERED: INSULIN GL100 UNIT/5 SQ ×2 (13:58→14:46)
[2023-06-03] MEDS ORDERED: JARDIANCE25 MG PO ×2 (13:59→14:46)
[2023-06-03] MEDS ORDERED: XARE20MG PO (14:46)
[2023-06-03] MEDS ORDERED: LIPITOR10 MG PO (14:46)
[2023-06-03] MEDS ORDERED: CARDIZEM CD360 MG PO (14:46)
== END 2023-06-03 15:15 | disposition home or self-care (01) | DRG 420 ==
LOC: ED 10:12 → 4E 13:49 → EDHOLD 13:49 → 4E 20:07
PROVIDERS: Emergency Medicine; Registered Nurse; ADMIT Internal Medicine; ATTEND Internal Medicine
PROC: 05HA33Z Insertion of Infusion Device into Left Brachial Vein, Percutaneous Approach (ICD-10-PCS; principal; 2023-06-02)
PROC: B54NZZA Ultrasonography of Left Upper Extremity Veins, Guidance (ICD-10-PCS; 2023-06-02)
DX: E11.649 Type 2 diabetes mellitus with hypoglycemia without coma (principal); E87.20 Acidosis, unspecified; N17.0 Acute kidney failure with tubular necrosis; F12.90 Cannabis use, unspecified, uncomplicated; I95.9 Hypotension, unspecified; E86.0 Dehydration; I48.91 Unspecified atrial fibrillation; I11.0 Hypertensive heart disease with heart failure; I50.9 Heart failure, unspecified; F41.1 Generalized anxiety disorder; F17.210 Nicotine dependence, cigarettes, uncomplicated; E78.5 Hyperlipidemia, unspecified; Z71.6 Tobacco abuse counseling; Z82.49 Family history of ischemic heart disease and other diseases of the circulatory system; Z81.1 Family history of alcohol abuse and dependence

== ENCOUNTER 2023-07-04 19:46 | Emergency (ER) | payer BC ==
[~2023-07-04 19:46] MED LIST changes: +ALDACTONE25 M1 PO; +FUROSEMIDE40 MG PO; +INSULIN GL100 UNIT/5 SQ; +JARDIANCE25 MG PO; +SYMB160 INH; +VENT7GM INH; +ZESTRIL10 MG PO
== END 2023-07-04 21:00 | disposition left against medical advice (07) ==
LOC: ED 19:46
DX: S90.451A Superficial foreign body, right great toe, initial encounter (principal); Z53.21 Procedure and treatment not carried out due to patient leaving prior to being seen by health care provider; X58.XXXA Exposure to other specified factors, initial encounter; Y93.89 Activity, other specified; Y92.89 Other specified places as the place of occurrence of the external cause; Y99.8 Other external cause status

== ENCOUNTER 2023-07-09 00:14 | Emergency (ER) | payer BC ==
[~2023-07-09] VITALS: Ht 180.3 cm; Wt 103.0 kg
[2023-07-09 01:30] LABS: BASO # 0.1 10*3/uL (0.0-0.1); BASO % 0.5 % (0.0-1.0); EOS # 0.2 10*3/uL (0.0-0.4); EOS % 1.9 % (1.0-4.0); HEMATOCRIT 42.2 % (42.0-52.0); LYMPH # 1.5 10*3/uL (1.3-4.4); LYMPH % 14.3 % (27.0-41.0); MEAN CELL VOLUME 83.6 fl (80.0-94.0); MEAN CORPUSCULAR HGB 27.9 pg (27.0-31.0); MEAN CORPUSCULAR HGB CONC 33.4 g/dl (33.0-37.0); MONO # 0.8 10*3/uL (0.1-1.0); MONO % 7.3 % (3.0-9.0); NEUT % 75.6 % (47.0-73.0); PLATELET COUNT AUTOMATED 310 10*3/uL (130-400); RED BLOOD COUNT 5.05 10*6/uL (4.50-5.90); RED CELL DISTRI WIDTH 15.7 % (0-14.5); WHITE BLOOD COUNT 10.5 10*3/uL (4.8-10.8)
[2023-07-09 02:05] LABS: POTASSIUM 3.8 mmol/L (3.4-5.1); TOTAL PROTEIN 6.4 gm/dL (6.0-8.0)
[2023-07-09] MEDS ORDERED: BACITRACIN3.5 GM OP (03:17)
== END 2023-07-09 04:00 | disposition home or self-care (01) ==
LOC: ED 00:14
PROVIDERS: Family Medicine
DX: S91.111A Laceration without foreign body of right great toe without damage to nail, initial encounter (principal); I95.9 Hypotension, unspecified; E11.9 Type 2 diabetes mellitus without complications; Z79.4 Long term (current) use of insulin; I10 Essential (primary) hypertension; I48.91 Unspecified atrial fibrillation; Z98.890 Other specified postprocedural states; F12.90 Cannabis use, unspecified, uncomplicated; Z72.0 Tobacco use; W22.8XXA Striking against or struck by other objects, initial encounter; Y93.89 Activity, other specified; Y92.89 Other specified places as the place of occurrence of the external cause; Y99.8 Other external cause status